=== PATIENT | female | born 1995 | race Caucasian/White ===

== ENCOUNTER 2021-02-09 04:15 | Inpatient (IN) | payer BC ==
[2021-02-09] MEDS: DEXTROSE 5%-LACTATED RINGERS 1,000 ML IV SCH ×2 (05:30→09:35)
[2021-02-09] MEDS ORDERED: AMPICILLIN SODIUM 2 GM VIAL ONE (05:54)
[2021-02-09] MEDS ORDERED: AMPICILLIN SODIUM 2 GM VIAL IVPB ONE (06:00)
[2021-02-09 06:10] LABS: BASO % 0.5 % (0-2.0); EOS % 1.3 % (0-4.5); HEMOGLOBIN 11.7 GM/dL (10.7-15.3); LYMPH % 24.2 % (8-40); MCH 25.5 pg (25.7-33.7); MCHC 33.3 g/dl (32.0-36.0); MEAN CELL VOLUME 76.6 fl (80-96); MEAN PLT VOLUME 9.8 fl (7.5-11.1); MONO % 9.9 % (3.8-10.2); NEUT % 64.1 % (42.8-82.8); PLATELET COUNT 258 10^3/uL (134-434); RBC 4.57 M/mm3 (3.60-5.2); RDW 13.8 % (11.6-15.6); WHITE BLOOD COUNT 8.7 K/mm3 (4.0-10.0)
[2021-02-09 06:16] LABS: INR 0.84 (0.83-1.09); PROTHROMBIN TIME (PATIENT) 10.2 SEC (9.7-13.0)
[2021-02-09 06:19] LABS: ACTIVATED PTT 30.2 SECONDS (25.2-36.5)
[2021-02-09 06:34] LABS: CALCIUM 8.6 mg/dL (8.5-10.1)
[2021-02-09 06:35] LABS: ALBUMIN 2.6 g/dl (3.4-5.0); BLOOD UREA NITROGEN 14.7 mg/dL (7-18)
[2021-02-09 06:38] LABS: BILIRUBIN,TOTAL 0.2 mg/dL (0.2-1); CREATININE 0.6 mg/dL (0.55-1.3); TOT PROT 6.5 g/dl (6.4-8.2)
[2021-02-09 06:47] VITALS: BMI 25.2
[2021-02-09] MEDS ORDERED: PROMETHAZINE HCL 25 MG/1 ML VIAL IVPB ONE (08:26)
[2021-02-09] MEDS ORDERED: BUTORPHANOL TARTRATE 1 MG/ML VIAL IVPUSH PRN (08:26)
[2021-02-09] MEDS ORDERED: OXYTOCIN 30 UNITS in 0.9% NS 30 UNIT/500 ML INFUS.BAG IVPB SCH (08:30)
[2021-02-09] MEDS ORDERED: OXYTOCIN 30 UNITS in 0.9% NS 30 UNIT/500 ML INFUS.BAG IVPB ONE (08:49)
[2021-02-09] MEDS ORDERED: SODIUM CHLORIDE 100 ML IVPB ONE ×3 (09:37→18:24)
[2021-02-09] MEDS ORDERED: AMPICILLIN SODIUM 1 GM VIAL ONE ×3 (09:37→18:24)
[2021-02-09] MEDS: AMPICILLIN SODIUM 1 GM VIAL IVPB SCH ×3 (10:10→18:29)
[2021-02-09] MEDS ORDERED: FENTANYL/BUPIVACAINE/NS/PF - PCEA - 50 ML DISP.SYRIN EP ONE (13:23)
[2021-02-09] MEDS ORDERED: BUPIVACAINE HCL/PF 0.25% (2.5MG/ML) 10 ML VIAL ONE (14:21)
[2021-02-09] MEDS ORDERED: ELECTROLYTE-148 SOLN 1,000 ML IV SCH (14:30)
[2021-02-09] MEDS: FENTANYL/BUPIVACAINE/NS/PF - PCEA - 50 ML DISP.SYRIN EP SCH (14:35)
[2021-02-09] MEDS ORDERED: NALOXONE HCL 0.4 MG/ML VIAL IVPUSH PRN (14:46)
[2021-02-09 14:49] LABS: POC NITRAZINE POS
[2021-02-09] MEDS ORDERED: OXYTOCIN 20 UNITS in 0.9% NS 20 UNIT/1,000 ML INFUS.BAG IV ONE (18:03)
[2021-02-09] MEDS ORDERED: BENZOCAINE 20% 57 GM BOTTLE TP PRN (20:14)
[2021-02-09] MEDS ORDERED: IBUPROFEN 600 MG TABLET (FP) PO PRN (20:14)
[2021-02-09] MEDS ORDERED: BISACODYL 10 MG SUPP.RECT RC PRN (20:14)
[2021-02-09] MEDS ORDERED: BENZOCAINE 28 GM HEMORRHOIDAL OINTMENT TP PRN (20:14)
[2021-02-09] MEDS ORDERED: METHYLERGONOVINE MALEATE 0.2 MG/1 ML AMP IM PRN (20:14)
[2021-02-09] MEDS ORDERED: WITCH HAZEL 50% (TUCKS) 40 PAD/JAR PAD TP PRN (20:14)
[2021-02-09] MEDS ORDERED: ACETAMINOPHEN 325 MG TABLET (FP) PO PRN (20:14)
[2021-02-09] MEDS ORDERED: OXYTOCIN 20 UNITS in 0.9% NS 20 UNIT/1,000 ML INFUS.BAG IV SCH (20:15)
[2021-02-09] MEDS ORDERED: oxyCODONE HCL 5 MG TABLET PO PRN (20:25)
[2021-02-09 22:07] LABS: CORD BASE EXCESS -3.9 mmol/L (0-2); CORD HCO3 21.7 mmHg (20-29); CORD PCO2 41.8 mmHg (30-78); CORD pH 7.334 (7.14-7.44)
[2021-02-09 22:08] LABS: CORD BASE EXCESS -5.1 mmol/L (0-2); CORD HCO3 22.9 mmHg (20-29); CORD PCO2 53.6 mmHg (30-78); CORD pH 7.249 (7.14-7.44)
[2021-02-10] MEDS: AMPICILLIN SODIUM 1 GM VIAL IVPB SCH (00:27)
[2021-02-10] MEDS: FERROUS SO4 325 MG TABLET (FP) PO SCH ×2 (09:09→17:24)
[2021-02-10] MEDS: PRENATAL VITAMINS W/ FOLIC ACID TABLET (FP) PO SCH (09:09)
[2021-02-10 11:41] LABS: HEMOGLOBIN 10.4 GM/dL (10.7-15.3); RBC 4.12 M/mm3 (3.60-5.2); WHITE BLOOD COUNT 12.4 K/mm3 (4.0-10.0)
[2021-02-10 11:42] LABS: BASO % 0.3 % (0-2.0); EOS % 0.3 % (0-4.5); HEMATOCRIT 31.9 % (32.4-45.2); LYMPH % 13.3 % (8-40); MCH 25.3 pg (25.7-33.7); MCHC 32.7 g/dl (32.0-36.0); MEAN CELL VOLUME 77.5 fl (80-96); MEAN PLT VOLUME 9.9 fl (7.5-11.1); MONO % 8.6 % (3.8-10.2); NEUT % 77.5 % (42.8-82.8); PLATELET COUNT 254 10^3/uL (134-434)
[2021-02-10] MEDS: ACETAMINOPHEN 325 MG TABLET (FP) PO PRN ×2 (13:13→17:24)
[2021-02-10] MEDS: FENTANYL/BUPIVACAINE/NS/PF - PCEA - 50 ML DISP.SYRIN EP SCH (19:33)
[2021-02-10] MEDS ORDERED: SENNOSIDES/DOCUSATE COMBO (SENNA PLUS) TABLET (UD) PO PRN (22:00)
[2021-02-11] MEDS: FERROUS SO4 325 MG TABLET (FP) PO SCH (09:50)
[2021-02-11] MEDS: PRENATAL VITAMINS W/ FOLIC ACID TABLET (FP) PO SCH (09:51)
[2021-02-11 12:17] VITALS: BP 130/79; PULSE 63; TEMP 97.7
== END 2021-02-11 14:20 | disposition home or self-care (01) | DRG 807 ==
LOC: JDEL 04:15 → JLDR 05:10 → J3W 22:07
PROVIDERS: ADMIT Obstetrics & Gynecology; ATTEND Obstetrics & Gynecology
PROC: 10E0XZZ Delivery of Products of Conception, External Approach (ICD-10-PCS; principal; 2021-02-09)
PROC: 0HQ9XZZ Repair Perineum Skin, External Approach (ICD-10-PCS; 2021-02-09)
DX: O42.02 Full-term premature rupture of membranes, onset of labor within 24 hours of rupture (principal); Z37.0 Single live birth; B95.1 Streptococcus, group B, as the cause of diseases classified elsewhere; O99.824 Streptococcus B carrier state complicating childbirth; O70.0 First degree perineal laceration during delivery; Z3A.37 37 weeks gestation of pregnancy
CPT/HCPCS: 36415; 36600; 59409; 80053; 82803; 83986-QW; 85025; 85610; 85730; 86762; 86780; 86850; 86900; 86901; 87340; C9803; U0003; U0005